=== PATIENT | female | born 1970 | race Caucasian/White ===

== ENCOUNTER 2018-05-10 02:10 | Emergency (ER) | payer OTHER, MEDICAID ==
[2018-05-10] MEDS: HYDROCODONE/APAP (5/325) TAB PO (03:48)
== END 2018-05-10 05:53 | disposition home or self-care (01) ==
LOC: FTE 02:10
DX: S19.9XXA Unspecified injury of neck, initial encounter (principal); W01.0XXA Fall on same level from slipping, tripping and stumbling without subsequent striking against object, initial encounter; Y92.009 Unspecified place in unspecified non-institutional (private) residence as the place of occurrence of the external cause
CPT/HCPCS: 72125; 81025; 99284-25